=== PATIENT | male | born 1995 | race Caucasian/White ===

== ENCOUNTER → 2017-02-04 | Outpatient (CLI) | payer BC ==
[~2017-02-04] MED LIST: OMNIPAQUE 350 MG/ML, 150 ML BOTTLE ONE
== END | disposition home or self-care (01) ==
LOC: CFH 09:50
PROVIDERS: ATTEND Physician Assistant
DX: R31.0 Gross hematuria (principal)
CPT/HCPCS: 74178; Q9967

== ENCOUNTER 2017-08-06 06:02 | Day surgery (SDC) | payer BC ==
[~2017-08-06] VITALS: Ht 177.8 cm; Wt 67.6 kg
[2017-08-06] MEDS ORDERED: SODIUM CHLORIDE 0.9% 1,000 ML IV SCH (06:16)
[2017-08-06] MEDS ORDERED: NONE PER PT (06:17)
[2017-08-06 06:45] VITALS: BP 111/74
[2017-08-06] MEDS ORDERED: MIDAZOLAM 1 MG/ML, 5ML ONE (07:42)
[2017-08-06] MEDS ORDERED: FLUMAZENIL 0.1 MG/1 ML, 5ML ONE (07:43)
[2017-08-06] MEDS ORDERED: FENTANYL PF 100 MCG/2ML ONE (07:43)
[2017-08-06] MEDS ORDERED: NALOXONE 1 MG/ML, 2ML ONE (07:43)
[2017-08-06] MEDS ORDERED: LIDOCAINE 1%, 20ML ONE (07:53)
== END 2017-08-06 09:55 ==
LOC: OUT 06:02
PROVIDERS: ATTEND Internal Medicine Nephrology
DX: N17.9 Acute kidney failure, unspecified (principal); N02.8 Recurrent and persistent hematuria with other morphologic changes
CPT/HCPCS: 36415; 50200; 77012; 85610; 88300; 99156; 99157; J2250; J3010; J3490; J7030; J2310